=== PATIENT | male | born 1950 | race Caucasian/White ===

== ENCOUNTER → 2018-06-06 | Outpatient (CLI) | payer MEDICARE ==
[~2018-06-06] MED LIST: ALBU90OI INH; ALBU90OI6 INH; ALIS150T PO; ASPI81CH PO; ASPI81EC PO; AZOR PO; BUDE32NIS; BUPR150T2 PO; BUPROPION PO; CLON1 PO; CLON2 PO; DICL75ER PO; DULO60 PO; ERYT.5TO BOTHEYES; ESOM20; ETAN50I SC; ETANERCEPT SQ; FEXO60 PO; FURO40 PO; GABA300 PO; HYDACE5 PO; HYDR1TAB94 PO; IBUP800 PO; ISON300 PO; LIOT5 PO; LISI20 PO; LOVA20 PO; METTREX2.5 IM; MOMENI; Micro-K10 MEQ; OMEP20ER PO; OMEP40CA12 PO; PREG200 PO; Remicade100 MG IM; TAMS.4ER PO; ZOLP10 PO
[2018-06-06 10:14] LABS: BASOPHILS ABSOLUTE AUTO 0.05 K/mm3 (0.00-0.23); BASOPHILS PERCENT AUTO 0 % (0-2); EOSINOPHILS PERCENT AUTO 3 % (0-6); Hematocrit 37.8 % (37.0-53.0); Hemoglobin 12.5 g/dL (13.5-17.5); IMMATURE GRAN ABSOLUTE AUTO 0.04 K/mm3 (0.00-0.10); IMMATURE GRAN PERCENT AUTO 0 % (0-1); LYMPHOCYTES ABSOLUTE AUTO 0.99 K/mm3 (0.84-5.20); LYMPHOCYTES PERCENT AUTO 8 % (21-46); MONOCYTES ABSOLUTE AUTO 0.58 K/mm3 (0.16-1.47); MONOCYTES PERCENT AUTO 5 % (4-13); Mean Corpuscular HGB 30.5 pg (26.0-34.0); Mean Corpuscular HGB Conc 33.1 g/dL (31.5-36.5); Mean Corpuscular Volume 92 fL (80-100); Mean Platelet Volume 8.8 fL (9.1-12.4); NEUTROPHILS ABSOLUTE AUTO 10.15 K/mm3 (1.96-9.15); NEUTROPHILS PERCENT AUTO 83 % (41-73); Platelet Count 326 K/mm3 (150-400); RDW Standard Deviation 46.2 fL (35.1-46.3); White Blood Cell Count 12.21 K/mm3 (4.00-11.30)
[2018-06-06 10:47] LABS: Anion Gap 11 mmol/L (6-16); Blood Urea Nitrogen 10 mg/dL (8-24); Bun/Creatinine Ratio 8.8 (12.0-20.0); CO2, Blood 28 mmol/L (21-32); Calcium, Blood 8.7 mg/dL (8.5-10.1); Chloride, Blood 97 mmol/L (98-108); Creatinine, Blood 1.14 mg/dL (0.60-1.20); Glomerular Filtration Rate >60 (60-); Glucose, Blood 128 mg/dL (70-99); Potassium, Blood 4.1 mmol/L (3.5-5.5); Sodium, Blood 136 mmol/L (136-145)
== END | disposition home or self-care (01) ==
LOC: LAB EV 10:09 → LAB SHORT 10:09
PROVIDERS: Physician Assistant Surgical
DX: R06.02 Shortness of breath (principal)
CPT/HCPCS: 80048; 83880; 85025

== ENCOUNTER 2019-03-27 09:16 | Day surgery (SDC) | payer MEDICARE ==
[~2019-03-27] VITALS: Ht 185.4 cm; Wt 162.1 kg
[~2019-03-27 09:16] MED LIST changes: +COSENTYX P150 MG/11; +Citalopram HBr40 MG; +DUTA.5; +METO25ER; +SPIR25; +TIOT18
--- NOTE | 2019-03-27 10:43 | NUR ---
03/27/19 1043 Silvia Price O2 @ 10L PER NON REBREATHER MASK PER DR HILL
== END 2019-03-27 11:57 | disposition home or self-care (01) ==
LOC: ORSCSDS 09:16
PROVIDERS: Student in an Organized Health Care Education/Training Program
PROC: 0DBK8ZX Excision of Ascending Colon, Via Natural or Artificial Opening Endoscopic, Diagnostic (ICD-10-PCS; principal; 2019-03-27 11:00)
PROC: 0DBL8ZX Excision of Transverse Colon, Via Natural or Artificial Opening Endoscopic, Diagnostic (ICD-10-PCS; principal; 2019-03-27 11:00)
PROC: 0DBM8ZX Excision of Descending Colon, Via Natural or Artificial Opening Endoscopic, Diagnostic (ICD-10-PCS; principal; 2019-03-27 11:00)
PROC: 0DBH8ZX Excision of Cecum, Via Natural or Artificial Opening Endoscopic, Diagnostic (ICD-10-PCS; principal; 2019-03-27 11:00)
DX: Z12.11 Encounter for screening for malignant neoplasm of colon (principal); Z86.010 Personal history of colon polyps; D12.3 Benign neoplasm of transverse colon; D12.0 Benign neoplasm of cecum; D12.2 Benign neoplasm of ascending colon; D12.4 Benign neoplasm of descending colon; K57.30 Diverticulosis of large intestine without perforation or abscess without bleeding; K64.8 Other hemorrhoids; I10 Essential (primary) hypertension; J44.9 Chronic obstructive pulmonary disease, unspecified; G47.33 Obstructive sleep apnea (adult) (pediatric); E11.9 Type 2 diabetes mellitus without complications; Z99.81 Dependence on supplemental oxygen; E66.01 Morbid (severe) obesity due to excess calories; Z68.42 Body mass index [BMI] 45.0-49.9, adult; Z79.899 Other long term (current) drug therapy; Z79.82 Long term (current) use of aspirin
CPT/HCPCS: 82947; 88305; J2704; J7120

== ENCOUNTER → 2019-08-23 | Outpatient (CLI) | payer MEDICARE | END | disposition home or self-care (01) | LOC: LAB EV 09:11 → LAB SHORT 09:11 | DX: N64.59 Other signs and symptoms in breast (principal) | CPT/HCPCS: 36415; 84146 ==

== ENCOUNTER → 2021-01-03 | Outpatient (CLI) | payer MEDICARE ==
[2021-01-03 14:05] LABS: BASOPHILS ABSOLUTE AUTO 0.03 K/mm3 (0.00-0.23); BASOPHILS PERCENT AUTO 0 % (0-2); EOSINOPHILS ABSOLUTE AUTO 0.09 K/mm3 (0.00-0.68); EOSINOPHILS PERCENT AUTO 1 % (0-6); Hematocrit 38.9 % (37.0-53.0); Hemoglobin 13.3 g/dL (13.5-17.5); IMMATURE GRAN ABSOLUTE AUTO 0.03 K/mm3 (0.00-0.10); IMMATURE GRAN PERCENT AUTO 0 % (0-1); LYMPHOCYTES ABSOLUTE AUTO 1.18 K/mm3 (0.84-5.20); LYMPHOCYTES PERCENT AUTO 14 % (21-46); MONOCYTES ABSOLUTE AUTO 0.55 K/mm3 (0.16-1.47); MONOCYTES PERCENT AUTO 6 % (4-13); Mean Corpuscular HGB 31.1 pg (26.0-34.0); Mean Corpuscular HGB Conc 34.2 g/dL (31.5-36.5); Mean Corpuscular Volume 91 fL (80-100); Mean Platelet Volume 9.3 fL (9.1-12.4); NEUTROPHILS ABSOLUTE AUTO 6.76 K/mm3 (1.96-9.15); NEUTROPHILS PERCENT AUTO 78 % (41-73); Platelet Count 262 K/mm3 (150-400); RDW Coefficient Variation 13.2 % (11.7-14.2); RDW Standard Deviation 43.2 fL (35.1-46.3); Red Blood Cell Count 4.28 M/mm3 (4.30-5.90); White Blood Cell Count 8.64 K/mm3 (4.00-11.30)
[2021-01-03 14:34] LABS: Alanine Aminotransfer (ALT/SGP 31 U/L (12-78); Albumin, Blood 3.1 g/dL (3.4-5.0); Albumin/Globulin Ratio 0.9 (0.8-1.8); Alk Phos 68 U/L (40-126); Anion Gap 8 mmol/L (6-16); Aspartate Aminotrans (AST/SGOT 28 U/L (12-37); Bilirubin, Total 0.6 mg/dL (0.1-1.0); Blood Urea Nitrogen 10 mg/dL (8-24); Bun/Creatinine Ratio 11.9 (12.0-20.0); CO2, Blood 29 mmol/L (21-32); Calcium, Blood 8.2 mg/dL (8.5-10.1); Chloride, Blood 100 mmol/L (98-108); Creatinine, Blood 0.84 mg/dL (0.60-1.20); Globulin, Blood 3.6 g/dL (2.2-4.0); Glomerular Filtration Rate >60 (60-); Glucose, Blood 135 mg/dL (70-99); Potassium, Blood 4.1 mmol/L (3.5-5.5); Sodium, Blood 137 mmol/L (136-145); Total Protein, Blood 6.7 g/dL (6.4-8.2)
== END | disposition home or self-care (01) ==
LOC: PLD 14:00 → LAB SHORT 14:00
PROVIDERS: Physician Assistant
DX: R19.7 Diarrhea, unspecified (principal)
CPT/HCPCS: 80053; 83690; 85025

== ENCOUNTER → 2021-01-04 | Outpatient (CLI) | payer MEDICARE ==
[2021-01-04 13:14] LABS: C DIFFICILE DNA NEGATIVE (Negative)
== END ==
LOC: LAB SHORT 09:47 → LAB EV 09:47
PROVIDERS: Physician Assistant
DX: R19.7 Diarrhea, unspecified (principal)
CPT/HCPCS: 87493

== ENCOUNTER 2021-02-21 09:08 | Inpatient (IN) | payer MEDICARE ==
[~2021-02-21] VITALS: Ht 185.4 cm; Wt 168.6 kg
[~2021-02-21 09:08] MED LIST changes: -ALBU90OI INH; -ASPI81CH PO; -Citalopram HBr40 MG; -FURO40 PO; -GABA300 PO; -LISI20 PO; -METO25ER; -METTREX2.5 IM; -Micro-K10 MEQ
[2021-02-21 11:11] LABS: BASOPHILS ABSOLUTE AUTO 0.05 K/mm3 (0.00-0.23); BASOPHILS PERCENT AUTO 0 % (0-2); EOSINOPHILS ABSOLUTE AUTO 0.03 K/mm3 (0.00-0.68); EOSINOPHILS PERCENT AUTO 0 % (0-6); Hemoglobin 13.5 g/dL (13.5-17.5); IMMATURE GRAN ABSOLUTE AUTO 0.02 K/mm3 (0.00-0.10); IMMATURE GRAN PERCENT AUTO 0 % (0-1); LYMPHOCYTES ABSOLUTE AUTO 1.42 K/mm3 (0.84-5.20); LYMPHOCYTES PERCENT AUTO 13 % (21-46); MONOCYTES ABSOLUTE AUTO 0.93 K/mm3 (0.16-1.47); MONOCYTES PERCENT AUTO 8 % (4-13); Mean Corpuscular HGB 32.5 pg (26.0-34.0); Mean Corpuscular HGB Conc 33.8 g/dL (31.5-36.5); Mean Corpuscular Volume 96 fL (80-100); Mean Platelet Volume 9.1 fL (9.1-12.4); NEUTROPHILS ABSOLUTE AUTO 8.71 K/mm3 (1.96-9.15); NEUTROPHILS PERCENT AUTO 78 % (41-73); Platelet Count 225 K/mm3 (150-400); RDW Coefficient Variation 15.3 % (11.7-14.2); RDW Standard Deviation 53.9 fL (35.1-46.3); Red Blood Cell Count 4.16 M/mm3 (4.30-5.90); White Blood Cell Count 11.16 K/mm3 (4.00-11.30)
[2021-02-21 11:25] LABS: Creatine Kinase MB 1.9 ng/mL (0.0-3.6); Creatine Kinase MB Index 0.7 (0.0-4.0)
[2021-02-21 12:36] LABS: Alanine Aminotransfer (ALT/SGP 20 U/L (12-78); Albumin, Blood 3.1 g/dL (3.4-5.0); Albumin/Globulin Ratio 0.8 (0.8-1.8); Alk Phos 76 U/L (50-136); Anion Gap 12 mmol/L (6-16); Aspartate Aminotrans (AST/SGOT 24 U/L (12-37); Bilirubin, Total 0.4 mg/dL (0.1-1.0); Blood Urea Nitrogen 13 mg/dL (8-24); Bun/Creatinine Ratio 13.9 (12.0-20.0); CO2, Blood 22 mmol/L (21-32); Calcium, Blood 8.6 mg/dL (8.5-10.1); Chloride, Blood 101 mmol/L (98-108); Creatinine, Blood 0.94 mg/dL (0.60-1.20); Globulin, Blood 3.9 g/dL (2.2-4.0); Glomerular Filtration Rate >60 (60-); Glucose, Blood 123 mg/dL (70-99); Potassium, Blood 4.2 mmol/L (3.5-5.5); Sodium, Blood 135 mmol/L (136-145); Troponin I <0.015 ng/mL (0.000-0.040)
[2021-02-21] MEDS ORDERED: Citalopram HBr40 MG PO (13:55)
[2021-02-21] MEDS ORDERED: HYDRA25 PO (13:55)
[2021-02-21] MEDS ORDERED: [UNRECOGNIZED DRUG - OTHER] INH (13:57)
[2021-02-21] MEDS ORDERED: GABA300 PO (13:58)
[2021-02-21] MEDS ORDERED: FURO40 PO (13:58)
[2021-02-21] MEDS ORDERED: Micro-K10 MEQ PO (13:58)
[2021-02-21] MEDS ORDERED: OMEP20ER PO (13:59)
[2021-02-21] MEDS ORDERED: ZESTRIL40 M1 PO (13:59)
[2021-02-21] MEDS ORDERED: METO25ER PO (13:59)
[2021-02-21] MEDS ORDERED: TAMS.4ER PO (14:00)
[2021-02-21] MEDS ORDERED: TRAM50 PO (14:01)
[2021-02-21] MEDS ORDERED: FOLI1 PO (14:01)
[2021-02-21] MEDS ORDERED: SYNTHROID50 MC1 PO (14:02)
[2021-02-21] MEDS ORDERED: ALBU90OI INH (14:03)
[2021-02-21] MEDS ORDERED: Methotrexa25 MG/1 ML SC (14:05)
[2021-02-21] MEDS ORDERED: ASPI81CH PO (14:48)
[2021-02-21] MEDS ORDERED: Avodart0.5 MG PO (14:50)
[2021-02-21] MEDS ORDERED: COSENTYX SC (14:51)
[2021-02-21] MEDS ORDERED: triamcinolone aceton TOP (14:52)
[2021-02-21] MEDS ORDERED: Aspir 8181 MG PO (15:03)
[2021-02-21] MEDS ORDERED: KETO15TC TOP (16:25)
[2021-02-21] MEDS ORDERED: Vitamin D2000 UNIT PO (16:26)
--- NOTE | 2021-02-21 17:05 | NUR ---
ARRIVED FROM ED VIA ANIL, PT TRANSFERRED SELF TO BED, RLE NOTE W/ SPLINT, C/D/I, REPORTS HAVING HX OF NEUROPATHY ON FEET, DENIES ANY NEED FOR PAIN MEDS AT THIS TIME, RLE ELEVATED ON PILLOWS, ORIENTED TO ROOM AND CALL LIGHT.
[2021-02-21 20:30] LABS: Prothrombin Time Results 10.5 Sec (9.7-11.5)
[2021-02-22 02:36] LABS: SARS-Cov-2 (COVID-19) PCR, MMC POSITIVE (NEGATIVE)
--- NOTE | 2021-02-22 02:37 | NUR ---
PRE-OP SWAB FOR COVID REPORTED PER MARGARET IN LAB COVID POSTIVE.PLACED PT IN ISOLATION AND ADVISED PT.
--- NOTE | 2021-02-22 07:51 | NUR ---
SUMMARY PT PENDING OR TODAY FOR REPAIR OF ANKLE.CIRC CHECK REMAIN INTACT.
[2021-02-22 10:02] LABS: C-REACTIVE PROTEIN, EXT RANGE 10.9 mg/dL (0.000-0.300)
--- NOTE | 2021-02-22 11:36 | NUR ---
02/22/21- per chart review with Dr. Hicks, pt is having surgery today. No d/c plan at this time. -kia
--- NOTE | 2021-02-22 13:41 | NUR ---
PT PREOP DONE IN ROOM DUE TO THEM BEING IN ISOLATION FOR COVID. Patient confirms NPO status and agrees with scheduled surgery. History, Chart, Medications and Allergies reviewed before start of procedure.
--- NOTE | 2021-02-22 16:30 | NUR ---
POST OP ARRIVAL TO PCU ALERT, ORIENTED APPROP. TRANSFERED TO BED & REPOSITIONED INTO SITTING POSITION PER PT REQUEST. LUNGS DIM T/O, SLIGHT CRACKLES TO RLL. WET, VERY FREQ COUGH. PT REPORTS A COUGH IS NORMAL FOR HIM BUT NOT THIS FREQ. REPORTS IT PRODUCTIVE. WHEN ASKED TO SPIT INTO KLENEEX STATES HE CANNOT. RR INCREASED BUT NOT LABORED. R ANKLE/FOOT ELEVATED ON 2 PILLOWS IN A SPLINT W/ WONG WRAP. BRISK CAP REFILL, PWD. WIGGLES TOES SLIGHTLY. SKIN AT BEGINNING OF SPLINT PWD WELL. STATES PAIN IS MINIMAL & TOLERABLE. CLEAR LQS GIVEN. DENIES N/V.
--- NOTE | 2021-02-22 18:41 | NUR ---
SINCE ARRIVING POST OP PT'S RESP STATUS HAS BEEN UNCHANGED. O2 SATS GOOD ON 4L NC. WET COUGH CONTINUES. EATING, DRINKING, VOIDING WELL. CAP REFIL IN RLE WNL.
[2021-02-23 04:15] LABS: BASOPHILS ABSOLUTE AUTO 0.01 K/mm3 (0.00-0.23); BASOPHILS PERCENT AUTO 0 % (0-2); EOSINOPHILS PERCENT AUTO 0 % (0-6); Hematocrit 36.9 % (37.0-53.0); Hemoglobin 12.2 g/dL (13.5-17.5); IMMATURE GRAN ABSOLUTE AUTO 0.03 K/mm3 (0.00-0.10); IMMATURE GRAN PERCENT AUTO 0 % (0-1); LYMPHOCYTES PERCENT AUTO 9 % (21-46); MONOCYTES ABSOLUTE AUTO 0.85 K/mm3 (0.16-1.47); MONOCYTES PERCENT AUTO 8 % (4-13); Mean Corpuscular HGB 32.5 pg (26.0-34.0); Mean Corpuscular HGB Conc 33.1 g/dL (31.5-36.5); Mean Corpuscular Volume 98 fL (80-100); NEUTROPHILS ABSOLUTE AUTO 9.39 K/mm3 (1.96-9.15); NEUTROPHILS PERCENT AUTO 83 % (41-73); RDW Standard Deviation 54.2 fL (35.1-46.3); Red Blood Cell Count 3.75 M/mm3 (4.30-5.90); White Blood Cell Count 11.28 K/mm3 (4.00-11.30)
[2021-02-23 04:18] LABS: Mean Platelet Volume 9.7 fL (9.1-12.4); Platelet Count 196 K/mm3 (150-400)
[2021-02-23 04:22] LABS: Anion Gap 4 mmol/L (6-16); Blood Urea Nitrogen 17 mg/dL (8-24); Bun/Creatinine Ratio 17.6 (12.0-20.0); CO2, Blood 32 mmol/L (21-32); Calcium, Blood 8.6 mg/dL (8.5-10.1); Chloride, Blood 100 mmol/L (98-108); Creatinine, Blood 0.96 mg/dL (0.60-1.20); Glomerular Filtration Rate >60 (60-); Glucose, Blood 160 mg/dL (70-99); Potassium, Blood 4.4 mmol/L (3.5-5.5); Sodium, Blood 136 mmol/L (136-145)
--- NOTE | 2021-02-23 06:38 | NUR ---
SHIFT SUMMARY PATIENT A&Ox3. VSS THROUGHOUT SHIFT. PATIENT IS ON 2L NC WITH OXYGEN SATURATIONS ABOVE 90%. BARKY NONPRODUCTIVE COUGH PRESENT. SOB WITH EXERTION TO DANGLE AT SIDE OF BED. CPAP AT BEDSIDE WITH 2L BLEED IN. SPLINT TO RIGHT LOWER EXTREMITY THAT REMAINS C/D/I THROUGHOUT SHIFT. TOES ARE WARM TO TOUCH WITH A CAP REFILL LESS THAN 3 SECONDS. PATIENT USING URINAL AT BEDSIDE WITH SOME DIFFICULTY STARTING STREAM. NO OTHER SIGNIFICANT CHANGES TO PATIENT THIS SHIFT.
--- NOTE | 2021-02-23 09:29 | NUR ---
PT ALERT AND ORIENTED X4. NEURO - PUPILS EQUAL AND REACTIVE. NUMBNESS AND TINGLING TO BILATERAL LOWER EXTREMITTIES. HX OF NEUROPATHY. ON ROOM AIR AT THIS TIME. BASELINE 2 L O2. SATING MID 90'S. CLAIMS HE ONLY WEARS O2 NEEDED AT HOME WHEN FEELING SOB AND WHEN UP MOVING AROUND. LUNGS SOUND DIMINISHED. NO COUGH AT THIS TIME. TELE SHOWING SINUS WITH BUNDLE BRANCH BLOCK AND PVC'S. HR 80'S. BP STABLE. BILATERAL STRONG RADIAL PULSE. FAINT LEFT PEDAL PULSE. SWELLING NOTED TO LEFT LEG. BOWEL TONES PRESENT. ABDOMEN DISTENDED, PER PATIENT HIS NORMAL. USING URINAL AT BEDSIDE, HX OF BPH. SKIN OVERALL C/D/I. BRUISING TO LEFT KNEE/LOWER EXTREMITITY WITH SWELLING. RIGHT LOWER EXTREMITY/ANKLE SPLINTED AND WONG WRAPPED. DR. CARRANZA IN THIS AM TO ASSESS. 6/10 PAIN TO RIGHT ANKLE THIS AM. MEDICATED PER EMAR. PHYSICAL THERAPY IN TO WORK WITH PATIENT. ABLE TO PIVOT TO BEDSIDE COMMODE WITH 2 PERSON ASSITE. NON WEIGHT BEARING ON RIGHT LEG. CALL LIGHT IN REACH. ABLE TO POSITION SELF IN BED. WILL CONTINUE TO MONITOR.
--- NOTE | 2021-02-23 10:49 | NUR ---
Per chart review with Dr. Hicks, no plan for d/c at this time. -kia (, 10:48 AM)
--- NOTE | 2021-02-23 14:53 | NUR ---
TRANSFER: NO ACUTE CHANGES SEE PREVIOUS NOTE. VITAL SIGNS REMAIN STABLE. REMDESIVIR AND REGENERON ANTIBODIES INFUSED. PATIENT TRANSFERED TO 210 WITH ALL PERSONAL BELONGINGS. REPORTED OFF TO SURGICAL NURSE MARANDA.
[2021-02-24 04:14] LABS: BASOPHILS ABSOLUTE AUTO 0.05 K/mm3 (0.00-0.23); BASOPHILS PERCENT AUTO 1 % (0-2); EOSINOPHILS ABSOLUTE AUTO 0.08 K/mm3 (0.00-0.68); EOSINOPHILS PERCENT AUTO 1 % (0-6); Hematocrit 34.6 % (37.0-53.0); Hemoglobin 11.2 g/dL (13.5-17.5); IMMATURE GRAN ABSOLUTE AUTO 0.02 K/mm3 (0.00-0.10); IMMATURE GRAN PERCENT AUTO 0 % (0-1); LYMPHOCYTES ABSOLUTE AUTO 1.54 K/mm3 (0.84-5.20); LYMPHOCYTES PERCENT AUTO 20 % (21-46); MONOCYTES ABSOLUTE AUTO 0.75 K/mm3 (0.16-1.47); MONOCYTES PERCENT AUTO 10 % (4-13); Mean Corpuscular HGB 32.5 pg (26.0-34.0); Mean Corpuscular HGB Conc 32.4 g/dL (31.5-36.5); Mean Corpuscular Volume 100 fL (80-100); Mean Platelet Volume 9.1 fL (9.1-12.4); NEUTROPHILS ABSOLUTE AUTO 5.28 K/mm3 (1.96-9.15); NEUTROPHILS PERCENT AUTO 69 % (41-73); Platelet Count 194 K/mm3 (150-400); RDW Coefficient Variation 14.8 % (11.7-14.2); RDW Standard Deviation 54.6 fL (35.1-46.3); Red Blood Cell Count 3.45 M/mm3 (4.30-5.90); White Blood Cell Count 7.72 K/mm3 (4.00-11.30)
[2021-02-24 04:40] LABS: Alanine Aminotransfer (ALT/SGP 18 U/L (12-78); Albumin, Blood 2.5 g/dL (3.4-5.0); Albumin/Globulin Ratio 0.7 (0.8-1.8); Alk Phos 52 U/L (50-136); Anion Gap 4 mmol/L (6-16); Aspartate Aminotrans (AST/SGOT 21 U/L (12-37); Bilirubin, Total 0.5 mg/dL (0.1-1.0); Blood Urea Nitrogen 14 mg/dL (8-24); Bun/Creatinine Ratio 15.3 (12.0-20.0); CO2, Blood 32 mmol/L (21-32); Calcium, Blood 8.3 mg/dL (8.5-10.1); Chloride, Blood 100 mmol/L (98-108); Creatinine, Blood 0.92 mg/dL (0.60-1.20); Ferritin, Serum 249 ng/mL (26-388); Globulin, Blood 3.7 g/dL (2.2-4.0); Glomerular Filtration Rate >60 (60-); Glucose, Blood 114 mg/dL (70-99); Lactate Dehydrogenase (Ld),Bld 193 U/L (100-240); Potassium, Blood 3.9 mmol/L (3.5-5.5); Sodium, Blood 136 mmol/L (136-145); Total Protein, Blood 6.2 g/dL (6.4-8.2)
--- NOTE | 2021-02-24 06:27 | NUR ---
VSS THROUGHOUT SHIFT. PT C/O PAIN, MEDICATED APPROPRIATELY, SEE EMAR. NO BM THIS SHIFT. +BS +FLATUS. CPAP HS. 2L NC O2 PRN. R ANKLE IN SPLINT/ELEVATED W/ ICE. NO NOTEWORTHY EVENTS.
--- NOTE | 2021-02-25 06:33 | NUR ---
VSS. PAIN MANAGED W/ ULTRAM: SEE MAR. ABLE TO STAND/PIVOT WITH WALKER AND 1 ASSIST (NO GAIT BELT) TO BS. PT HAD MED-SIZED BM, FORMED/BROWN. +FLATUS. +BS. 2L NC O2 PRN. CPAP HS. SCHED NEBS.
--- NOTE | 2021-02-25 11:40 | NUR ---
Update 02/24/21: Per chart review with Dr. Hicks, pt. not yet appropriate for discharge. Recommendation from PT for SNF. Discussed benefit of SNF in depth with pt. He has refused SNF. Patient's ex- is an RN and daughter as well. He states that they will be coming over to assist him and he feels he has adequate support. He will benefit from [facility]. He is agreeable and states that he would like to go with whichever home health agency has the soonest availability. Pt. originally wanted a knee scooter, but after further thought, he would like to use his wheelchair and walker that he already has at home. I advised pt. to contact PCP if at anytime he feels he needs additional DME. He is agreeable. Pt. lives in single story home. Denied concerns for safety. Denied additional needs. Patient's family will come to pick him up when it is appropriate and he will make that phone call.
--- NOTE | 2021-02-25 12:33 | NUR ---
PT HAD INSTANCE OF CUSSING OUT ASSISTANT WOMENS VOLLEYBALL COACH AND OTHER NURSE WHEN THEY TRIED TO HELP HIM TO THE BSC. NURSING OIL HEATERMAN CALLED AND BEHAVIOR CONTRACT PROVIDED TO PT. PT DID NOT SIGN BEHAVIOR CONTRACT.
--- NOTE | 2021-02-25 13:16 | NUR ---
Update 02/25/21: Per chart review with Dr. Mcgovern this am, pt. potentially ready to D/C over the weekend. All in agreement that pt. will continue to decline SNF. Pt. has support from family at home and all needed DME. Pt. is currently on Remdesivir and will not complete course until Sunday. [facility] has agreed to see pt. for PT and nursing. They will plan for visit on Sunday or Sunday dependent upon hospital course. Provided update to Dr. Holder regarding discharge planning.
--- NOTE | 2021-02-25 18:02 | NUR ---
SHIFT SUMMARY PT POD #3 FOR ORIF. PT WORKED WITH PHYSICAL THERAPY AND DID WELL. RECOMMENDING HOME W/HOME HEALTH. NON WEIGHT BEARING ON AFFECTED LEG. PT HAD AN OUT BURST WITH STAFF REGARDING NEEDING TO CALL FOR HELP GETTING TO THE BSC. GAVE PT A BEHAVIOR CONTRACT AND PT HAS BEEN APPROPRIATE SINCE. HYPERTENSIVE THIS AM AND TREATED PER EMR. PT IN ISOLATION FOR COVID BUT ASYMPTOMATIC. WILL REPORT TO JAIMEE MORIN.
--- NOTE | 2021-02-25 18:22 | NUR ---
PT'S DAUGHTER (ALEXANDRIA PATTERSON) CALLED AND MENTIONED THAT PT POSSIBLY HAD COVID BACK IN NOVEMBER. HE WAS SEEN IN [place] AND WAS FOUND TO HAVE PNEUMONIA AND WAS HAVING DIARRHEA WELL. PT UNFORTUNATELY WAS NOT TESTED AT THIS TIME.
--- NOTE | 2021-02-26 06:46 | NUR ---
VSS. A/OX4. +FLATUS. +BS. PAIN MANAGEMENT W/ ULTRAM. STANDBY ASSIST W/ WALKER TO BSC. +ICE PACKS. NO EVENTS OVERNIGHT
--- NOTE | 2021-02-26 16:36 | NUR ---
HTN: BP 177/104 WITH EVENING VS. HR 87, WILL VS. PT DENIES DIZZINESS. DR. JESUS NOTIFIED, SEE NEW ORDERS. WILL CTM.
--- NOTE | 2021-02-26 18:15 | NUR ---
SUMMARY: PT IS POD4 R ANKLE ORIF. A/O, SURGICAL SITE WNL CMS INTACT TO LLE. PAIN SEEMS TO BE WELL MANAGED WITH ULTRAM Q8. SP02 97% ON RA TODAY, PT REPORTS THAT HE USES 02 AT HOME INTERMITTANTLY. PT IS SOB WITH EXERTION, THIS HE REPORTS, IS NORMAL. PT DID WELL WITH THERAPY AND FOLLOWS NWB PRECAUTIONS. OTHERWISE R LEG IS ELEVATED AND ICE APPLIED TODAY. PT USING CALL LIGHT, NO ACUTE SAFETY CONCERNS. PLAN IS FOR HOME WITH TOMORROW, WILL PASS REPORT TO JAIMEE MORIN.
--- NOTE | 2021-02-27 03:23 | NUR ---
PT APPEARS TO BE SLEEPING.
--- NOTE | 2021-02-27 05:21 | NUR ---
SHIFT SUMMARY POD 5 FOR R ANKLE ORIF. SPLINT W/WONG WRAP C/D/I. CAP REFILL <3 SECONDS, PT IS ABLE TO MOVE TOES AND TOES ARE WARM TO TOUCH. PT HAS REPORTED SOME PAIN IN R ANKLE AND WAS TREATED PER EMAR. PT HAD SOME DIFFICULTY SLEEPING BUT WAS ABLE TO REST DURING SHIFT. PT'S O2 SATS HAVE MAINTAINED IN HIGH 90'S ON ROOM AIR WELL WITH CPAP. PT IS A&O X4 AND PLEASANT. IV IN R AND L AC BOTH LEAKING AND REMOVED. PLAN IS TO D/C HOME TODAY. PT IS RESTING IN BED WITH CALL LIGHT WITHIN REACH.
--- NOTE | 2021-02-27 11:38 | NUR ---
DR. JESUS NOTIFIED OF PT'S CONTINUED HTN AT 1100, SEE VS AND NEW ORDERS. NEW IV STARTED FOR LAST DOSE OF REMDESIVIR. WILL CTM AND MEDICATE PER EMAR.
--- NOTE | 2021-02-27 18:21 | NUR ---
SUMMARY: PT IS POD5 R ANKLE ORIF. NO ACUTE CHANGE TODAY, A/O. SURGICAL SITE WNL. PT CONTINUES TO HAVE ASYMPTOMATIC HTN, SEE VS AND PREVIOUS NOTE. OTHERWISE VSS AND SP02 ABOVE 90% ON RA. PAIN MANAGED WELL WITH ULTRAM, LAST DOSE OF REMDESIVER INFUSED. PLAN IS FOR DC TOMORROW.
--- NOTE | 2021-02-28 04:53 | NUR ---
SHIFT SUMMARY POD 6 FOR R ANKLE ORIF. PT A&O X4. SPLINT W/WONG WRAP C/D/I. GOOD CAP REFILL AND MOVEMENT TO R TOES. PT IS ABLE TO TRANSFER W/MINIMAL ASSISTANCE AND FWW. PT CALLS APPROPRIATELY. PT TREATED FOR PAIN PER EMAR. PT USED 2 L NC DURING SHIFT PRN FOR SOB AND CPAP WHILE SLEEPING. O2 SATS MAINTAINED IN HIGH 90'S. CONTINUE TO MONITOR BP'S DUE TO CONSITANTLY HIGH READINGS. PT DENIES SOB OUTSIDE OF BASELINE. WILL GIVE REPORT TO DAY SHIFT NURSE.
[2021-02-28] MEDS ORDERED: TIOT18 INH (10:36)
[2021-02-28] MEDS ORDERED: NIFE30ER PO (10:37)
--- NOTE | 2021-02-28 12:35 | NUR ---
Update 02/28/21: Per chart review this am with Dr. Macias, pt. is appropriate for discharge. He is requesting a bariatric walker. Ordered through [facility] and requested delivery to [facility]. Pt. received walker. Scheduled for hospital F/U 03/03/21 at 9:40am with Dr. Milligan via telehealth. Please see notes from 02/25/21 for additional D/C planning details.
--- NOTE | 2021-02-28 12:56 | NUR ---
DISCHARGE SUMMARY PT A&OX4, VSS, VOIDING WELL, IRA PO, PAIN MANAGED WITH ULTRAM, AMB WITH FWW DELIVERED BY [facility] INSTRUCTIONS PROVIDED. PT REP UNDERSTANDING THOSE INSTRUCTIONS INCLUDING FU WITH ORTHO SG AND EFM PCP IN 1 WEEK, WHEN TO CALL THE DR, OK TO SHOWER BUT IMPERATIVE TO KEEP SPLINT/WONG DRY, ELEVATE RLE AT REST, NWB, ULTRAM SCRIPT PROVIDED, IV DC'D.
== END 2021-02-28 11:50 | disposition home health service (06) | DRG 492 ==
LOC: ORSCMMR 09:08 → ER 09:08 → SURS 14:54 → PCU 02-22 15:52 → SURS 02-23 14:44
PROVIDERS: Emergency Medicine; Orthopaedic Surgery; Physician Assistant; ADMIT Family Medicine
PROC: 0QSJ04Z Reposition Right Fibula with Internal Fixation Device, Open Approach (ICD-10-PCS; principal; 2021-02-22 12:45)
PROC: XW033G6 Introduction of REGN-COV2 Monoclonal Antibody into Peripheral Vein, Percutaneous Approach, New Technology Group 6 (ICD-10-PCS; 2021-02-23)
PROC: XW033E5 Introduction of Remdesivir Anti-infective into Peripheral Vein, Percutaneous Approach, New Technology Group 5 (ICD-10-PCS; 2021-02-23)
DX: S82.851A Displaced trimalleolar fracture of right lower leg, initial encounter for closed fracture (principal); U07.1 COVID-19; Z68.42 Body mass index [BMI] 45.0-49.9, adult; W18.39XA Other fall on same level, initial encounter; J44.9 Chronic obstructive pulmonary disease, unspecified; I11.0 Hypertensive heart disease with heart failure; I50.9 Heart failure, unspecified; E66.01 Morbid (severe) obesity due to excess calories; K21.9 Gastro-esophageal reflux disease without esophagitis; N40.0 Benign prostatic hyperplasia without lower urinary tract symptoms; E78.5 Hyperlipidemia, unspecified; G25.81 Restless legs syndrome; E03.9 Hypothyroidism, unspecified; G62.9 Polyneuropathy, unspecified; N62 Hypertrophy of breast; F32.9 Major depressive disorder, single episode, unspecified; K59.00 Constipation, unspecified; L40.50 Arthropathic psoriasis, unspecified; G47.33 Obstructive sleep apnea (adult) (pediatric); Z88.0 Allergy status to penicillin; Z88.5 Allergy status to narcotic agent; Y92.009 Unspecified place in unspecified non-institutional (private) residence as the place of occurrence of the external cause; Z98.890 Other specified postprocedural states; Z79.82 Long term (current) use of aspirin; Z79.899 Other long term (current) drug therapy; Z99.81 Dependence on supplemental oxygen; Z98.52 Vasectomy status
CPT/HCPCS: 27818; 36415; 73600; 73610; 80048; 80053; 82550; 82553; 82728; 82947; 83036; 83615; 84145; 84484; 85025; 85379; 85610; 85730; 86140; 93005; 93010; 94640; 94664; 94760; 94762; 96374-59; 96375-59; 97110; 97162; 97166; 97530; 97535; 99285-25; A9270; C1713; J0171; J0360; J1100; J1650; J2250; J2270; J2370; J2405; J2704; J2795; J3010; J7120; J9260; Q0243; U0004

== ENCOUNTER → 2022-03-20 | Outpatient (CLI) | payer MEDICARE ==
[~2022-03-20] MED LIST changes: +ALBU90OI INH; +ASPI81CH PO; +Aspir 8181 MG PO; +Avodart0.5 MG PO; +COSENTYX SC; +Citalopram HBr40 MG PO; +FOLI1 PO; +FURO40 PO; +GABA300 PO; +HYDRA25 PO; +KETO15TC TOP; +METO25ER PO; +Methotrexa25 MG/1 ML SC; +Micro-K10 MEQ PO; +NIFE30ER PO; +SYNTHROID50 MC1 PO; +TIOT18 INH; +TRAM50 PO; +Vitamin D2000 UNIT PO; +ZESTRIL40 M1 PO; +[UNRECOGNIZED DRUG - OTHER] INH; +triamcinolone aceton TOP
== END | disposition home or self-care (01) ==
LOC: LAB 06:31 → LAB SHORT 06:31
DX: L03.115 Cellulitis of right lower limb (principal)
CPT/HCPCS: 87070; 87075; 87077; 87186; 87205

== ENCOUNTER 2022-05-08 09:24 | Day surgery (SDC) | payer MEDICARE | END 2022-05-08 22:59 | disposition home or self-care (01) | LOC: WOUND 09:24 | DX: S81.809A Unspecified open wound, unspecified lower leg, initial encounter (principal); I87.313 Chronic venous hypertension (idiopathic) with ulcer of bilateral lower extremity; I87.2 Venous insufficiency (chronic) (peripheral); E11.9 Type 2 diabetes mellitus without complications; I25.10 Atherosclerotic heart disease of native coronary artery without angina pectoris; J44.9 Chronic obstructive pulmonary disease, unspecified | CPT/HCPCS: G0463 ==

== ENCOUNTER 2022-05-12 13:56 | Day surgery (SDC) | payer MEDICARE | END 2022-05-12 23:03 | disposition home or self-care (01) | LOC: WOUND 13:56 | DX: I87.313 Chronic venous hypertension (idiopathic) with ulcer of bilateral lower extremity (principal); I87.2 Venous insufficiency (chronic) (peripheral); L97.929 Non-pressure chronic ulcer of unspecified part of left lower leg with unspecified severity; L97.919 Non-pressure chronic ulcer of unspecified part of right lower leg with unspecified severity ==

== ENCOUNTER 2022-05-15 01:22 | Day surgery (SDC) | payer MEDICARE | END 2022-05-15 22:44 | disposition home or self-care (01) | LOC: WOUND 01:22 | DX: I87.313 Chronic venous hypertension (idiopathic) with ulcer of bilateral lower extremity (principal); L97.822 Non-pressure chronic ulcer of other part of left lower leg with fat layer exposed; L97.812 Non-pressure chronic ulcer of other part of right lower leg with fat layer exposed; I87.2 Venous insufficiency (chronic) (peripheral); E11.622 Type 2 diabetes mellitus with other skin ulcer; E11.51 Type 2 diabetes mellitus with diabetic peripheral angiopathy without gangrene | CPT/HCPCS: G0463 ==

== ENCOUNTER 2022-05-17 00:28 | Day surgery (SDC) | payer MEDICARE | END 2022-05-17 23:56 | disposition home or self-care (01) | LOC: WOUND 00:28 | DX: I87.313 Chronic venous hypertension (idiopathic) with ulcer of bilateral lower extremity (principal); L97.822 Non-pressure chronic ulcer of other part of left lower leg with fat layer exposed; L97.812 Non-pressure chronic ulcer of other part of right lower leg with fat layer exposed; I87.2 Venous insufficiency (chronic) (peripheral); E11.622 Type 2 diabetes mellitus with other skin ulcer; E11.51 Type 2 diabetes mellitus with diabetic peripheral angiopathy without gangrene ==

== ENCOUNTER 2022-06-14 13:47 | Emergency (ER) | payer OTHER ==
[~2022-06-14] VITALS: Ht 185.4 cm; Wt 165.6 kg
[2022-06-14] MEDS ORDERED: LIDOCAINE1 EAC1 TOP (16:48)
[2022-06-14] MEDS ORDERED: OXAYDO5 M1 PO (16:48)
[2022-06-14] MEDS ORDERED: IBUP800 PO (16:48)
== END 2022-06-14 17:20 | disposition home or self-care (01) ==
LOC: ER 13:47
DX: S22.42XA Multiple fractures of ribs, left side, initial encounter for closed fracture (principal); S92.321A Displaced fracture of second metatarsal bone, right foot, initial encounter for closed fracture; S92.331A Displaced fracture of third metatarsal bone, right foot, initial encounter for closed fracture; S92.325A Nondisplaced fracture of second metatarsal bone, left foot, initial encounter for closed fracture; S92.335A Nondisplaced fracture of third metatarsal bone, left foot, initial encounter for closed fracture; J44.9 Chronic obstructive pulmonary disease, unspecified; I11.0 Hypertensive heart disease with heart failure; I50.9 Heart failure, unspecified; W01.0XXA Fall on same level from slipping, tripping and stumbling without subsequent striking against object, initial encounter; Z88.0 Allergy status to penicillin; Z88.5 Allergy status to narcotic agent; Z79.899 Other long term (current) drug therapy; Z79.890 Hormone replacement therapy
CPT/HCPCS: 71101; 73620; A9270; J1885

== ENCOUNTER 2023-03-08 22:25 | Inpatient (IN) | payer OTHER ==
[~2023-03-08] VITALS: Ht 185.4 cm; Wt 171.0 kg
[~2023-03-08 22:25] MED LIST changes: -FURO40 PO; +FURO80 PO; +LIDOCAINE1 EAC1 TOP; -Methotrexa25 MG/1 ML SC; +OTREXUP SC; +OXAYDO5 M1 PO
[2023-03-08 23:20] LABS: BASOPHILS ABSOLUTE AUTO 0.02 K/mm3 (0.00-0.23); BASOPHILS PERCENT AUTO 0 % (0-2); EOSINOPHILS ABSOLUTE AUTO 0.02 K/mm3 (0.00-0.68); EOSINOPHILS PERCENT AUTO 0 % (0-6); Hematocrit 34.4 % (37.0-53.0); Hemoglobin 11.6 g/dL (13.5-17.5); IMMATURE GRAN ABSOLUTE AUTO 0.07 K/mm3 (0.00-0.10); IMMATURE GRAN PERCENT AUTO 1 % (0-1); LYMPHOCYTES ABSOLUTE AUTO 1.53 K/mm3 (0.84-5.20); LYMPHOCYTES PERCENT AUTO 14 % (21-46); MONOCYTES PERCENT AUTO 6 % (4-13); Mean Corpuscular HGB 33.2 pg (26.0-34.0); Mean Corpuscular HGB Conc 33.7 g/dL (31.5-36.5); Mean Corpuscular Volume 99 fL (80-100); Mean Platelet Volume 8.9 fL (9.1-12.4); NEUTROPHILS ABSOLUTE AUTO 8.94 K/mm3 (1.96-9.15); NEUTROPHILS PERCENT AUTO 79 % (41-73); Platelet Count 206 K/mm3 (150-400); RDW Coefficient Variation 14.6 % (11.7-14.2); RDW Standard Deviation 52.8 fL (35.1-46.3); Red Blood Cell Count 3.49 M/mm3 (4.30-5.90); White Blood Cell Count 11.28 K/mm3 (4.00-11.30)
[2023-03-08 23:46] LABS: Source, Urine Clean Catch
[2023-03-08 23:48] LABS: Albumin, Blood 3.2 g/dL (3.4-5.0); Albumin/Globulin Ratio 0.9 (0.8-1.8); Bilirubin, Total 0.2 mg/dL (0.1-1.0); Bun/Creatinine Ratio 17.9 (12.0-20.0); Creatinine, Blood 1.34 mg/dL (0.60-1.20); Globulin, Blood 3.4 g/dL (2.2-4.0); Magnesium, Blood 2.1 mg/dL (1.6-2.4); Phosphorus, Blood 3.3 mg/dL (2.5-4.9); Total Protein, Blood 6.6 g/dL (6.4-8.2)
[2023-03-09] VITALS (22 sets, daily range): BP systolic 99–228; BP diastolic 54–184
[2023-03-09 00:05] LABS: Bilirubin, Urine Neg (Neg); Blood, Urine Neg (Neg); Glucose Qualitative, Urine Neg (Neg); Ketones, Urine Neg (Neg); Leukocyte Esterase, Urine Neg (Neg); Nitrite, Urine Neg (Neg); Protein, Urine Neg (Neg); Specific Gravity, Urine 1.005 (1.003-1.022); Urobilinogen, Urine NORM (Normal); pH, Urine 6.5 (5.0-8.0)
[2023-03-09 00:07] LABS: International Normalized Ratio 0.97; Prothrombin Time Results 10.2 Sec (9.7-11.5)
[2023-03-09 00:24] LABS: Appearance, Urine Clear (Clear); Color, Urine Pale Yellow (P-Yellow)
[2023-03-09 04:24] LABS: BASOPHILS ABSOLUTE AUTO 0.04 K/mm3 (0.00-0.23); BASOPHILS PERCENT AUTO 0 % (0-2); EOSINOPHILS ABSOLUTE AUTO 0.07 K/mm3 (0.00-0.68); EOSINOPHILS PERCENT AUTO 1 % (0-6); Hematocrit 34.1 % (37.0-53.0); Hemoglobin 11.5 g/dL (13.5-17.5); IMMATURE GRAN ABSOLUTE AUTO 0.05 K/mm3 (0.00-0.10); IMMATURE GRAN PERCENT AUTO 0 % (0-1); LYMPHOCYTES ABSOLUTE AUTO 2.42 K/mm3 (0.84-5.20); LYMPHOCYTES PERCENT AUTO 17 % (21-46); MONOCYTES ABSOLUTE AUTO 1.11 K/mm3 (0.16-1.47); MONOCYTES PERCENT AUTO 8 % (4-13); Mean Corpuscular HGB Conc 33.7 g/dL (31.5-36.5); Mean Corpuscular Volume 98 fL (80-100); Mean Platelet Volume 8.9 fL (9.1-12.4); NEUTROPHILS ABSOLUTE AUTO 10.91 K/mm3 (1.96-9.15); NEUTROPHILS PERCENT AUTO 75 % (41-73); Platelet Count 199 K/mm3 (150-400); RDW Coefficient Variation 14.9 % (11.7-14.2); Red Blood Cell Count 3.48 M/mm3 (4.30-5.90)
--- NOTE | 2023-03-09 04:33 | NUR ---
ARRIVAL PT ARRIVED TO THE FLOOR IN NO DISTRESS. A/OX4, ON RA BUT REQUESTS 2L VIA NC FOR COMFORT. REPORTING 7/10 PAIN IN RLE, MEDICATED WITH IV MEDICATION. VSS, UNABLE TO ASSESS PULSE ON RIGHT FOOT BUT CAP REFILL NOTED TO BE BRISK. PLAN FOR ORTHO CONSULT TODAY. THE PATIENT IS CURRENTLY SLEEPING, CALL LIGHT IN REACH
[2023-03-09 05:04] LABS: Albumin, Blood 3.3 g/dL (3.4-5.0); Anion Gap 6 mmol/L (6-16); Blood Urea Nitrogen 26 mg/dL (8-24); Bun/Creatinine Ratio 17.3 (12.0-20.0); CO2, Blood 31 mmol/L (21-32); Calcium, Blood 8.4 mg/dL (8.5-10.1); Chloride, Blood 97 mmol/L (98-108); Glomerular Filtration Rate 49 (60-); Glucose, Blood 133 mg/dL (70-99); Magnesium, Blood 2.1 mg/dL (1.6-2.4); Phosphorus, Blood 3.5 mg/dL (2.5-4.9); Potassium, Blood 4.1 mmol/L (3.5-5.5); Sodium, Blood 134 mmol/L (136-145)
--- NOTE | 2023-03-09 07:28 | NUR ---
PT CAME TO FLOOR AND CN DID THE ADMIT FOR THE PT. VSS AND PT IS NPO FOR POSSIBLE PROCEDURE LATER TODAY. PAIN CONTROLLED PER EMAR.
--- NOTE | 2023-03-09 12:59 | NUR ---
PT INTO SDS VIA BED. Pre-Op teaching done. Pt verbalizes understanding. History, Chart, Medications and Allergies reviewed before start of procedure.Patient confirms NPO status and agrees with scheduled surgery.
--- NOTE | 2023-03-09 13:41 | NUR ---
PT TO OR AT ABOUT 1300
--- NOTE | 2023-03-09 19:41 | NUR ---
POST OP: REPORT RECEIVED FROM MARKETING SERVICES COORDINATORPATIENCE QUINTANA. PT TO UNIT AT 1830. VSS, SURGICAL SITE WNL. PT REPORTS PAIN TOLERABLE. 2ND DOSE OF TXA GIVEN. REPORT PASSED TO JAIMEE MORIN
[2023-03-10 05:01] VITALS: BP 122/60
[2023-03-10 05:17] LABS: BASOPHILS ABSOLUTE AUTO 0.02 K/mm3 (0.00-0.23); BASOPHILS PERCENT AUTO 0 % (0-2); EOSINOPHILS ABSOLUTE AUTO 0.03 K/mm3 (0.00-0.68); EOSINOPHILS PERCENT AUTO 0 % (0-6); Hemoglobin 10.3 g/dL (13.5-17.5); IMMATURE GRAN ABSOLUTE AUTO 0.07 K/mm3 (0.00-0.10); IMMATURE GRAN PERCENT AUTO 1 % (0-1); LYMPHOCYTES ABSOLUTE AUTO 1.42 K/mm3 (0.84-5.20); LYMPHOCYTES PERCENT AUTO 11 % (21-46); MONOCYTES ABSOLUTE AUTO 1.15 K/mm3 (0.16-1.47); MONOCYTES PERCENT AUTO 9 % (4-13); Mean Corpuscular HGB 33.2 pg (26.0-34.0); Mean Corpuscular HGB Conc 32.2 g/dL (31.5-36.5); NEUTROPHILS ABSOLUTE AUTO 10.05 K/mm3 (1.96-9.15); NEUTROPHILS PERCENT AUTO 79 % (41-73); Platelet Count 178 K/mm3 (150-400); RDW Coefficient Variation 15.4 % (11.7-14.2); RDW Standard Deviation 57.3 fL (35.1-46.3); White Blood Cell Count 12.74 K/mm3 (4.00-11.30)
[2023-03-10 05:51] LABS: Calcium, Blood 7.8 mg/dL (8.5-10.1); Creatinine, Blood 2.07 mg/dL (0.60-1.20); Magnesium, Blood 2.3 mg/dL (1.6-2.4); Mean Corpuscular Volume 103 fL (80-100); Potassium, Blood 4.7 mmol/L (3.5-5.5)
--- NOTE | 2023-03-10 06:14 | NUR ---
SHIFT SUMMARY PT POD O R ANKLE REPAIR, PT HAS RESTED OFF AND ON T/O THE NIGHT. INTERMITTENT PAIN RELIEVED WITH MEDS PER EMAR. R ANKLE SPLINTED, PT DENIES N/T. DRESSING C/D/I, ELEVATED ON PILLOWS. PT NON-WEIGHT BEARING ON R LEG. PT ATTEMPTED TO GET OOB TO USE THE BSC USING 2PA, FWW AND GAIT BELT. PT VERY WEAK AND WAS WAS UNABLE TO STAND PIVOT WIH GOOD LEG, PT LEFT LEG BEGAN TO BUCKLE UNDERNEATH HIM AND PT HAD AN INCONTINENT BOWEL MOVEMENT. IT TOOK 5 STAFF MEMBERS TO GET HIM SAFETLY BACK TO BED PREVENTING A FALL. PT IS NOW ONLY USING THE BED MCELROY AND URINAL, IT IS UNSAFE FOR PT TO BED OOB AT THIS TIME. IV ANTIBIOTICS INFUSED PER ORDERS. VITALS STABLE. BED IN LOWEST POSITON, CALL LIGHT WITHIN REACH.
[2023-03-10 07:31] VITALS: BP 137/81
[2023-03-10 14:56] VITALS: BP 96/66
--- NOTE | 2023-03-10 18:07 | NUR ---
SHIFT SUMMARY PT A&OX4, VSS/3LNC, IRA PO, VOIDING/URINAL, BMs/BEDPAN, SITTING SIDE OF BED FOR MEALS/REPOSITIONS SELF, PAIN MANAGED. POD1 R ANKLE ORIF, SPLINT/WONG CDI, ELEVATED. WILL REPORT TO ONCOMING NOC RN.
[2023-03-10 19:45] VITALS: BP 135/105
[2023-03-10 22:37] VITALS: BP 104/82
[2023-03-11 03:15] LABS: C DIFFICILE DNA NEGATIVE (Negative)
--- NOTE | 2023-03-11 04:32 | NUR ---
URINARY RETENTION PT HAS NOT VOIDED ALL SHIFT, LAST RECORDED VOID WAS AT 1200. PT HAS BEEN REFUSING A BLADDER SCAN, BUT FINALLY AGREEDED FOR US TO SCAN HIM THIS AM. BLADDER SCAN REVEALVED 471 IN BLADDER, PT REPORTS URGE TO VOID. PT DOES NOT WANT A CABRAL AND REFUSES, BUT IS AGREEABLE TO TAKING ANOTHER 0.[address] POST, CALLED AND NOTIFIED OF RETENTION. HE ORDERED AND ADDITONAL DOSE OF 0.4 FLOMAX LAST DOSE WAS GIVEN AT HS.
--- NOTE | 2023-03-11 04:35 | NUR ---
SHIFT SUMMARY PT HAS RESTED OFF AND ON T/O THE NIGHT. POD 1 R ANKLE ORIF, SPLINTED. PT DENIES N/T IN EXT. DRESSING C/D/I TO ANKLE. PT HAS INTERMITTENT PAIN RELEIVED WITH MEDS PER EMAR. 3L O2 IN PLACE, MOIST PRODUCTIVE COUGH, SOB WITH EXERTION. PT CONTINUES TO HAVE LOOSE LIQUID MUCOUS STOOL. STOOL IS CLEAR IN COLOR. SAMPLE COLLECTED AND SENT TO TEST FOR CDIFF, RESULTS NEGATIVE. PT HAS HAD URINARY RETENTION, 471 IN BLADDER. PT REFUSING CATHETER AT THIS TIME, BUT WOULD LIKE TO TAKE AN ADDITIONAL DOSE OF FLOMAX. WILL MEDICATE PER ORDER. PT BP HAVE BEEN SOFT THIS SHIFT, PT ASYMPTOMATIC, MAP ABOVE 65. NO OTHER CHANGES TO REPORT, BED IN LOWEST POSITION, CALL LIGHT WITHIN REACH.
[2023-03-11 05:09] VITALS: BP 105/62
[2023-03-11 07:24] VITALS: BP 124/99
[2023-03-11 07:40] LABS: BASOPHILS ABSOLUTE AUTO 0.03 K/mm3 (0.00-0.23); BASOPHILS PERCENT AUTO 0 % (0-2); EOSINOPHILS PERCENT AUTO 1 % (0-6); Hematocrit 29.4 % (37.0-53.0); Hemoglobin 9.3 g/dL (13.5-17.5); IMMATURE GRAN ABSOLUTE AUTO 0.05 K/mm3 (0.00-0.10); IMMATURE GRAN PERCENT AUTO 0 % (0-1); LYMPHOCYTES ABSOLUTE AUTO 1.37 K/mm3 (0.84-5.20); LYMPHOCYTES PERCENT AUTO 12 % (21-46); MONOCYTES ABSOLUTE AUTO 1.14 K/mm3 (0.16-1.47); MONOCYTES PERCENT AUTO 10 % (4-13); Mean Corpuscular HGB 32.3 pg (26.0-34.0); Mean Corpuscular HGB Conc 31.6 g/dL (31.5-36.5); Mean Corpuscular Volume 102 fL (80-100); Mean Platelet Volume 9.4 fL (9.1-12.4); NEUTROPHILS ABSOLUTE AUTO 9.18 K/mm3 (1.96-9.15); NEUTROPHILS PERCENT AUTO 77 % (41-73); Platelet Count 169 K/mm3 (150-400); RDW Coefficient Variation 14.8 % (11.7-14.2); RDW Standard Deviation 55.7 fL (35.1-46.3); Red Blood Cell Count 2.88 M/mm3 (4.30-5.90); White Blood Cell Count 11.87 K/mm3 (4.00-11.30)
[2023-03-11 07:55] LABS: Albumin, Blood 2.6 g/dL (3.4-5.0); Albumin/Globulin Ratio 0.8 (0.8-1.8); Bilirubin, Total 0.5 mg/dL (0.1-1.0); Bun/Creatinine Ratio 13.5 (12.0-20.0); Calcium, Blood 7.9 mg/dL (8.5-10.1); Creatinine, Blood 3.41 mg/dL (0.60-1.20); Globulin, Blood 3.4 g/dL (2.2-4.0); Potassium, Blood 4.1 mmol/L (3.5-5.5)
[2023-03-11 10:56] LABS: Magnesium, Blood 2.4 mg/dL (1.6-2.4); Phosphorus, Blood 4.8 mg/dL (2.5-4.9)
[2023-03-11 11:35] VITALS: BP 103/86
[2023-03-11 13:43] VITALS: BP 104/65
[2023-03-11 15:34] VITALS: BP 92/59
--- NOTE | 2023-03-11 15:34 | NUR ---
TELEPHONE CALL WITH DR KAT R/T CABRAL CATH PATIENT; DR ORDERED STRAIGHT CATH. IS AWARE OF PATIENT BMS CLEAR LIQUID SMALL AMT WITH PASSING OF FLATUS. NO NEW ORDER RECEIVED AT THIS TIME FOR BOWEL CARE.
--- NOTE | 2023-03-11 16:10 | NUR ---
BLADDER SCAN 790. STRAIGHT CATH 850 MLS. FU BS SHOWS 1 ML IN BLADDER.
[2023-03-11 16:37] LABS: Source, Urine Straight Cath
[2023-03-11 16:44] LABS: Appearance, Urine Clear (Clear); Bilirubin, Urine Neg (Neg); Blood, Urine Neg (Neg); Color, Urine Yellow (P-Yellow); Glucose Qualitative, Urine Neg (Neg); Ketones, Urine 1+ (Neg); Leukocyte Esterase, Urine Neg (Neg); Nitrite, Urine Neg (Neg); Protein, Urine Neg (Neg); Specific Gravity, Urine 1.025 (1.003-1.022); Urobilinogen, Urine NORM (Normal)
--- NOTE | 2023-03-11 17:26 | NUR ---
SHIFT SUMMARY PT A&OX4, VSS/3LNC/TELE AFIB AVE HR 106, IRA PO, PAIN MANAGED, SITTING ON SIDE OF BED FOR MEALS/REPOSITIONS SELF. VOIDED THIS AM/UNABLE TO VOID THE REST OF THE SHIFT BUT REFUSED CATHETER/MULTIPLE BLADDER SCANS/AT 790 MLS PT AGREED TO CATH/ORDER FROM DR KAT FOR STRAIGHT CATH/TOTAL 850 AND UA SENT TO LAB. DR KAT AWARE OF MULTI SMALL CLEAR/JELLY/LIQUID BMS/NO NEW ORDERS RECEIVED. DR KAT AWARE OF PT AND FAMILY REPORT OF PT HAVING SYNCOPAL EPISODES/MOST LIKELY R/T BP AND MEDS/DR INFANTE WILL ADJUST MEDS. POD2 R ANKLE ORIF, SPLINT/WONG CDI, BLE ELEVATED ON MULTIPLE PILLOWS, WIGGLES TOES, CAP REFILL WNL. WILL REPORT TO ONCOMING NOC RN.
[2023-03-11 20:48] VITALS: BP 125/94
--- NOTE | 2023-03-12 01:24 | NUR ---
PT BLADDER SCANNED. 180MLS. NO STRAIGHT CATH NEEDED.
[2023-03-12 05:13] VITALS: BP 86/67
[2023-03-12 05:22] LABS: BASOPHILS ABSOLUTE AUTO 0.03 K/mm3 (0.00-0.23); BASOPHILS PERCENT AUTO 0 % (0-2); EOSINOPHILS ABSOLUTE AUTO 0.22 K/mm3 (0.00-0.68); EOSINOPHILS PERCENT AUTO 3 % (0-6); Hematocrit 28.7 % (37.0-53.0); Hemoglobin 9.3 g/dL (13.5-17.5); IMMATURE GRAN ABSOLUTE AUTO 0.03 K/mm3 (0.00-0.10); IMMATURE GRAN PERCENT AUTO 0 % (0-1); LYMPHOCYTES ABSOLUTE AUTO 1.38 K/mm3 (0.84-5.20); LYMPHOCYTES PERCENT AUTO 16 % (21-46); MONOCYTES ABSOLUTE AUTO 0.88 K/mm3 (0.16-1.47); MONOCYTES PERCENT AUTO 10 % (4-13); Mean Corpuscular HGB Conc 32.4 g/dL (31.5-36.5); Mean Corpuscular Volume 102 fL (80-100); Mean Platelet Volume 9.3 fL (9.1-12.4); NEUTROPHILS ABSOLUTE AUTO 6.38 K/mm3 (1.96-9.15); NEUTROPHILS PERCENT AUTO 72 % (41-73); Platelet Count 181 K/mm3 (150-400); RDW Coefficient Variation 14.6 % (11.7-14.2); RDW Standard Deviation 54.3 fL (35.1-46.3); Red Blood Cell Count 2.82 M/mm3 (4.30-5.90); White Blood Cell Count 8.92 K/mm3 (4.00-11.30)
[2023-03-12 05:25] VITALS: BP 101/54
--- NOTE | 2023-03-12 05:28 | NUR ---
SHIFT SUMMARY POD 3 ORIF R LLE PT A&O X4, ABLE TO SIT ON SIDE OF BED WITH LITTLE ASST. VOIDED LITTLE AMOUNTS, HAD ONE INCONTINENT EPISODE. HAVING SMALL CLEAR MUCOSY BOWEL MOVEMENTS. PTS SATS STAYING ABOVE 94% ON 3L NC. PT HAS MOIST COUGH. NO SPUTUM. ENCOURAGED TO USE INCENTIVE SPIROMETER AND FLUTTER VALVE. HELD NIGHTIME HYDRLAZIINE, BP SOFT THIS MORNING. TELE REPORTS AFIB AT 117 BPM THIS MORNING. MOVINF WELL IN BED TO REPOSTION SELF. PAIN MANAGED PER EMAR. NO OTHER CONCERNS AT THIS TIME CALL LIGHT WITHIN REACH.
[2023-03-12 05:59] LABS: Albumin, Blood 2.7 g/dL (3.4-5.0); Albumin/Globulin Ratio 0.8 (0.8-1.8); Bilirubin, Total 0.5 mg/dL (0.1-1.0); Bun/Creatinine Ratio 16.7 (12.0-20.0); Globulin, Blood 3.6 g/dL (2.2-4.0); Total Protein, Blood 6.3 g/dL (6.4-8.2)
[2023-03-12 07:32] VITALS: BP 119/72
[2023-03-12 16:34] VITALS: BP 112/59
--- NOTE | 2023-03-12 16:42 | NUR ---
SHIFT SUMMARY PT RESTED IN CHAIR FOR MOST OF SHIFT. PT IS 2 PERSON ASSIST. PT ABLE TO VOID THIS SHIFT AND HAVING CLEAR MUCOUSY BM. PT UP TO COMMODE SEVERAL TIMES. PAIN MANAGED PER EMR. PT ON 3L O2 VIA NC. PT HAS MOIST COUGH THAT IS NOT PRODUCTIVE. PT WORKED WTIH THERAPY TODAY. PT IS BACK IN BED, RESTING COMFORTABLY, CALL LIGHT WITHIN REACH, BED IN LOWEST POSITION. BREATHING EVEN AND NONLABORED.
[2023-03-12 19:19] VITALS: BP 107/61
--- NOTE | 2023-03-12 23:29 | NUR ---
UPDATE PT C/O SHORTNESS OF BREATH. RT CALLED TO DO A BREATHING TREATMENT. RT IN ROOM AND STARTED BREATHING TREATMENT.
[2023-03-13 04:30] VITALS: BP 126/64
--- NOTE | 2023-03-13 04:34 | NUR ---
SHIFT SUMMARY POD 4 ORIF OF R LEG PT UP FOR MOST OF NIGHT. PT HAD AN EPISDOE OF SOB, RT CAME AND GAVE A BREATHING TREATMENT. PT STATES THE TREATMENT HELPED AND HE FEELS BETTER. PT ON BEDPAN MULTIPLE TIMES HAVING CLEAR MUCUSY BOWEL MOVEMENT. MILK OF MAG GIVEN PER EMAR. PT ABLE TO VOID THIS SHIFT, SITTING UP ON THE SIDE OF BED INDEPENDENTLY. MOIST COUGH HAVING SOME SPUTUM UP BUT VERY SCANT AMOUNT. I.S. AND FLUTTER ENCOURAGED. PT USING BOTH. NO OTHER CONERNS AT THIS TIME. CALL LIGHT WITHIN REACH.
[2023-03-13 05:33] LABS: BASOPHILS ABSOLUTE AUTO 0.03 K/mm3 (0.00-0.23); BASOPHILS PERCENT AUTO 0 % (0-2); EOSINOPHILS ABSOLUTE AUTO 0.32 K/mm3 (0.00-0.68); EOSINOPHILS PERCENT AUTO 4 % (0-6); Hematocrit 25.6 % (37.0-53.0); Hemoglobin 8.4 g/dL (13.5-17.5); IMMATURE GRAN ABSOLUTE AUTO 0.04 K/mm3 (0.00-0.10); IMMATURE GRAN PERCENT AUTO 1 % (0-1); LYMPHOCYTES ABSOLUTE AUTO 1.33 K/mm3 (0.84-5.20); LYMPHOCYTES PERCENT AUTO 17 % (21-46); MONOCYTES PERCENT AUTO 11 % (4-13); Mean Corpuscular HGB 32.9 pg (26.0-34.0); Mean Corpuscular HGB Conc 32.8 g/dL (31.5-36.5); Mean Corpuscular Volume 100 fL (80-100); Mean Platelet Volume 9.3 fL (9.1-12.4); NEUTROPHILS ABSOLUTE AUTO 5.41 K/mm3 (1.96-9.15); NEUTROPHILS PERCENT AUTO 67 % (41-73); Platelet Count 198 K/mm3 (150-400); RDW Coefficient Variation 14.4 % (11.7-14.2); RDW Standard Deviation 52.7 fL (35.1-46.3); Red Blood Cell Count 2.55 M/mm3 (4.30-5.90); White Blood Cell Count 8.03 K/mm3 (4.00-11.30)
[2023-03-13 06:10] LABS: Albumin, Blood 2.6 g/dL (3.4-5.0); Albumin/Globulin Ratio 0.7 (0.8-1.8); Bilirubin, Total 0.6 mg/dL (0.1-1.0); Bun/Creatinine Ratio 24.5 (12.0-20.0); Calcium, Blood 8.2 mg/dL (8.5-10.1); Creatinine, Blood 2.08 mg/dL (0.60-1.20); Globulin, Blood 3.6 g/dL (2.2-4.0); Potassium, Blood 3.7 mmol/L (3.5-5.5); Total Protein, Blood 6.2 g/dL (6.4-8.2)
[2023-03-13 08:42] VITALS: BP 125/62
--- NOTE | 2023-03-13 13:15 | NUR ---
ASSUMED CARE NOTE RECEIVED REPORT FROM NELI ON SURGICAL. ASSUMED CARE OF PT AT APPROX 12:45. PT A&OX4, NON WT BEARING ON R LEG, AMB USING FWW, GB, 2 NURSE ASSIST, AND PIVOT, TOLERATING PO, ON TELE, RETAINING URINE AND REFUSES CATHETER, EDUCATED ON RISKS, ON 3 LO2 DENIES PAIN AND SOB. WONG WRAP AND SPLINT IN PLACE ON R LE THAT IS C/D/I. CALL LIGHT WITHIN REACH AND PT ABLE TO MAKE NEEDS KNOWN.
[2023-03-13 15:31] VITALS: BP 117/70
--- NOTE | 2023-03-13 18:21 | NUR ---
SHIFT SUMMARY PT A&0X4, VOIDING, AND DENIES PAIN. NO ACUTE CHANGES. CALL LIGHT WITHIN REACH AND PT ABLE TO MAKE NEEDS KNOWN.
[2023-03-13 19:17] VITALS: BP 140/75
[2023-03-14] MEDS ORDERED: FAMO20 PO (03:45)
[2023-03-14] MEDS ORDERED: KLOR-CON 1010 ME9 PO (03:46)
[2023-03-14] MEDS ORDERED: METFORMIN HCL500 M3 PO (03:49)
[2023-03-14] MEDS ORDERED: GABA300 PO (03:51)
[2023-03-14] MEDS ORDERED: IPRAT-ALBUT 0.5-3 ML INH (03:52)
[2023-03-14] MEDS ORDERED: PRED20 PO (03:53)
[2023-03-14] MEDS ORDERED: NYAMYC15 G1 TOP (03:54)
[2023-03-14 05:15] VITALS: BP 143/73
--- NOTE | 2023-03-14 06:22 | NUR ---
Shift Summary PT RLE extrememty is very painful, medicated per EMAR. Pt has a wet cough and SoB which he states has been keeping him awake for 3 days. He has +2 edema in BLE. I called the hospitalist who ordered a 1 time dose of IV Lasix. After 2 hours from the Lasix pt was asleep. He later stated that his breathing was less wet and improved. At one point pt had incontinent BM and urgent voids and attempted went to the BSC by himself. Per pt he crawled across the floor to the BR and climbed up onto the BSC. Pt is a 2+ max assist pivot transfer. No evidence of fall, no injuries or bruises. Pt had a sudden nosebleed this AM which resolved itself after 30 minutes. Pt is AOx4. His breath sounds are wet again this morning. Pt declined my offer to call RT and prefers to use his own inhaler at the bedside.
[2023-03-14 06:35] LABS: BASOPHILS ABSOLUTE AUTO 0.05 K/mm3 (0.00-0.23); BASOPHILS PERCENT AUTO 1 % (0-2); EOSINOPHILS ABSOLUTE AUTO 0.23 K/mm3 (0.00-0.68); EOSINOPHILS PERCENT AUTO 3 % (0-6); Hematocrit 27.9 % (37.0-53.0); Hemoglobin 9.1 g/dL (13.5-17.5); IMMATURE GRAN ABSOLUTE AUTO 0.02 K/mm3 (0.00-0.10); IMMATURE GRAN PERCENT AUTO 0 % (0-1); LYMPHOCYTES ABSOLUTE AUTO 1.03 K/mm3 (0.84-5.20); LYMPHOCYTES PERCENT AUTO 14 % (21-46); MONOCYTES ABSOLUTE AUTO 0.92 K/mm3 (0.16-1.47); MONOCYTES PERCENT AUTO 12 % (4-13); Mean Corpuscular HGB 32.9 pg (26.0-34.0); Mean Corpuscular HGB Conc 32.6 g/dL (31.5-36.5); Mean Corpuscular Volume 101 fL (80-100); Mean Platelet Volume 9.3 fL (9.1-12.4); NEUTROPHILS ABSOLUTE AUTO 5.17 K/mm3 (1.96-9.15); NEUTROPHILS PERCENT AUTO 70 % (41-73); Platelet Count 216 K/mm3 (150-400); RDW Coefficient Variation 14.1 % (11.7-14.2); RDW Standard Deviation 51.5 fL (35.1-46.3); Red Blood Cell Count 2.77 M/mm3 (4.30-5.90); White Blood Cell Count 7.42 K/mm3 (4.00-11.30)
[2023-03-14 06:52] LABS: Bun/Creatinine Ratio 29.6 (12.0-20.0); Calcium, Blood 8.6 mg/dL (8.5-10.1); Creatinine, Blood 1.42 mg/dL (0.60-1.20); Potassium, Blood 4.1 mmol/L (3.5-5.5)
[2023-03-14 07:35] VITALS: BP 152/84
[2023-03-14 14:53] LABS: Influenza A, PCR NEGATIVE (NEGATIVE); Influenza B, PCR NEGATIVE (NEGATIVE); Resp Syncytial Virus, PCR NEGATIVE (NEGATIVE); SARS-Cov-2 (COVID-19) PCR, MMC NEGATIVE (NEGATIVE)
[2023-03-14] MEDS ORDERED: Acetaminophen325 M1 PO (15:03)
[2023-03-14] MEDS ORDERED: METO50ER PO (15:04)
[2023-03-14] MEDS ORDERED: ADALAT CC30 M2 PO (15:04)
[2023-03-14] MEDS ORDERED: OXYC5 PO (15:05)
[2023-03-14] MEDS ORDERED: SENN187 PO (15:07)
[2023-03-14 15:37] VITALS: BP 158/82
--- NOTE | 2023-03-14 17:52 | NUR ---
SHIFT SUMMARY AND DISCHARGE PATIENT DISCHARGED TO [facility]. IV DC'D. BELONGINGS SENT WITH PATIENT. ROOM CHECK DONE BEFORE PATIENT DEPARTED. PATIENT TRANSPORTED VIA WHEELCHAIR TRANSPORT. PATIENT HAD NO FURTHER BLOODY NOSES TODAY. HUMIDIFIER APPLIED TO OXYGEN AT START OF SHIFT. R LEG CONTINUES TO HAVE SPLINT IN PLACE. PATIENT ABLE TO WIGGLE TOES AND 2 PERSON TRANSFER WITH GAIT BELT AND WALKER. PATIENT LIVES ALONE AND WILL NOT BE ABLE TO CARE FOR SELF AT HOME WITH WEIGHT RESTRICTIONS.
== END 2023-03-14 17:58 | DRG 492 ==
LOC: ER 22:25 → MEDS 03-09 03:09 → SURS 03-09 03:09 → MEDS 03-13 12:45 → ENPENDDIS 03-14 16:16 → MEDS 03-14 17:58
PROVIDERS: Emergency Medicine; Family Medicine; Internal Medicine; Orthopaedic Surgery; ADMIT Internal Medicine
PROC: 0QPG04Z Removal of Internal Fixation Device from Right Tibia, Open Approach (ICD-10-PCS; 2023-03-09)
PROC: 0QSGXZZ Reposition Right Tibia, External Approach (ICD-10-PCS; 2023-03-09)
PROC: 0QHG06Z Insertion of Intramedullary Internal Fixation Device into Right Tibia, Open Approach (ICD-10-PCS; principal; 2023-03-09 14:30)
DX: S82.201A Unspecified fracture of shaft of right tibia, initial encounter for closed fracture (principal); I50.31 Acute diastolic (congestive) heart failure; I13.0 Hypertensive heart and chronic kidney disease with heart failure and stage 1 through stage 4 chronic kidney disease, or unspecified chronic kidney disease; N17.9 Acute kidney failure, unspecified; J96.11 Chronic respiratory failure with hypoxia; Z66 Do not resuscitate; S82.401A Unspecified fracture of shaft of right fibula, initial encounter for closed fracture; J44.9 Chronic obstructive pulmonary disease, unspecified; E03.9 Hypothyroidism, unspecified; R60.0 Localized edema; R55 Syncope and collapse; G47.33 Obstructive sleep apnea (adult) (pediatric); I48.0 Paroxysmal atrial fibrillation; E78.5 Hyperlipidemia, unspecified; E29.1 Testicular hypofunction; G89.29 Other chronic pain; N40.0 Benign prostatic hyperplasia without lower urinary tract symptoms; K21.9 Gastro-esophageal reflux disease without esophagitis; E66.9 Obesity, unspecified; F17.220 Nicotine dependence, chewing tobacco, uncomplicated; E11.42 Type 2 diabetes mellitus with diabetic polyneuropathy; E11.22 Type 2 diabetes mellitus with diabetic chronic kidney disease; N18.9 Chronic kidney disease, unspecified; W18.30XA Fall on same level, unspecified, initial encounter; L40.50 Arthropathic psoriasis, unspecified; Z79.01 Long term (current) use of anticoagulants; Y92.019 Unspecified place in single-family (private) house as the place of occurrence of the external cause; Z88.5 Allergy status to narcotic agent; Z88.0 Allergy status to penicillin; Z99.81 Dependence on supplemental oxygen; Z79.82 Long term (current) use of aspirin; Z11.52 Encounter for screening for COVID-19
CPT/HCPCS: 0241U; 29505; 36415; 71045; 71046; 73590; 73620; 80048; 80053; 80069; 81003; 82947; 83735; 83880; 84100; 84484; 85025; 85610; 85730; 87493; 93005; 93010; 94640; 94664; 94760; 94762; 96374-59; 96375-59; 97110; 97161; 97166; 97530; 97535; 99285-25; A9270; C1713; C1769; J0330; J0690; J1170; J1650; J1940; J2250; J2270; J2405; J2704; J3010; J3370; J7050; J7120

== ENCOUNTER 2024-04-23 22:36 | Emergency (ER) | payer OTHER ==
[~2024-04-23] VITALS: Ht 185.4 cm; Wt 176.9 kg
[~2024-04-23 22:36] MED LIST changes: +ADALAT CC30 M2 PO; +Acetaminophen325 M1 PO; +FAMO20 PO; +IPRAT-ALBUT 0.5-3 ML INH; +KLOR-CON 1010 ME9 PO; +METFORMIN HCL500 M3 PO; +METO50ER PO; +NYAMYC15 G1 TOP; +OXYC5 PO; +PRED20 PO; +SENN187 PO
[2024-04-23 23:00] VITALS: BP 199/100
== END 2024-04-23 23:53 | disposition home or self-care (01) ==
LOC: ER 22:36
DX: R04.0 Epistaxis (principal); I10 Essential (primary) hypertension; J44.9 Chronic obstructive pulmonary disease, unspecified; G47.30 Sleep apnea, unspecified; Z79.82 Long term (current) use of aspirin; Z79.899 Other long term (current) drug therapy; Z88.0 Allergy status to penicillin; Z88.5 Allergy status to narcotic agent
CPT/HCPCS: 99283